=== PATIENT | male | born 1945 | race Caucasian/White ===

== ENCOUNTER 2020-10-26 08:37 | Day surgery (SDC) | payer OTHER, BC ==
[2020-10-02 10:28] VITALS: BMI 27.1
[2020-10-26] MEDS ORDERED: ONDANSETRON 4 MG/2 ML VIAL ONE (08:50)
[2020-10-26] MEDS ORDERED: PROPOFOL 20 ML ONE (08:51)
[2020-10-26 10:00] VITALS: BP 110/66; PULSE 66; TEMP 98
== END 2020-10-26 10:50 | disposition home or self-care (01) ==
LOC: FASU-ENDO 08:37
PROVIDERS: ATTEND Internal Medicine Gastroenterology
PROC: 0D5H8ZZ Destruction of Cecum, Via Natural or Artificial Opening Endoscopic (ICD-10-PCS; principal; 2020-10-26 09:04)
DX: K55.20 Angiodysplasia of colon without hemorrhage (principal); D50.9 Iron deficiency anemia, unspecified

== ENCOUNTER 2023-06-21 08:04 | Day surgery (SDC) | payer OTHER, BC ==
[2023-06-19 12:23] VITALS: BMI 25.7
[2023-06-21 08:32] VITALS: TEMP 98.1
[2023-06-21] MEDS: CYCLOPENTOLATE 2% OPHTH SOLN 2 ML BOTTLE ONE ×3 (09:20→09:30)
[2023-06-21] MEDS: PHENYLEPHRINE 2.5% OPTHALMIC DROP 2ML BOTTLE ONE ×3 (09:20→09:30)
[2023-06-21] MEDS: TROPICAMIDE 1% OPHTH SOLN 15 ML BOTTLE ONE ×3 (09:20→09:30)
[2023-06-21] MEDS: CIPROFLOXACIN HCL 0.3% OPHTH 2.5ML BOTTLE ONE ×3 (09:20→09:30)
[2023-06-21] MEDS ORDERED: NEO/POLYMYX B SULF/DEXAMETH OPHTHALMIC 5ML BOTTLE ONE (09:44)
[2023-06-21] MEDS ORDERED: LIDOCAINE 1% P/F 10 MG/ML VIAL ONE (09:44)
[2023-06-21] MEDS ORDERED: EPINEPHrine/PF 1 MG/1 ML (1:1,000) AMPULE ONE (09:44)
[2023-06-21] MEDS ORDERED: TETRACAINE 0.5% OPHTH SOLN 2 ML BOTTLE ONE (09:44)
[2023-06-21] MEDS ORDERED: BSS (NA/CA/MG/K) BALANCED SALT SOLUTION OPHTH SOLN 15 ML BOTTLE ONE (09:44)
[2023-06-21] MEDS ORDERED: CARBACHOL 0.01% INTRA-OCULAR 1.5 ML VIAL ONE (09:44)
[2023-06-21] MEDS ORDERED: MIDAZOLAM HCL 2 MG/2 ML SINGLE DOSE VIAL ONE (09:56)
[2023-06-21 10:34] VITALS: RESP 18
[2023-06-21 10:49] VITALS: BP 176/95; PULSE 66
== END 2023-06-21 10:50 | disposition home or self-care (01) ==
LOC: FASU 08:04
PROVIDERS: ATTEND Ophthalmology
PROC: 08RK3JZ Replacement of Left Lens with Synthetic Substitute, Percutaneous Approach (ICD-10-PCS; principal; 2023-06-21 10:01)
DX: H26.8 Other specified cataract (principal)
CPT/HCPCS: 66984; V2632